=== PATIENT | female | born 1965 | race Native Hawaiian/Other Pacific Islander ===

== ENCOUNTER 2017-05-17 13:06 | Emergency (ER) | payer SELFPAY ==
[~2017-05-17] VITALS: Ht 152.4 cm; Wt 68.0 kg
[2017-05-17 13:13] VITALS: BP_SYST 161
--- NOTE | 2017-05-17 13:20 | NUR ---
MSE performed in triage per ESSENCE Robert.
--- NOTE | 2017-05-17 13:23 | NUR ---
Pt placed to ER bed 04, to [facility], report given to Vikas.
--- NOTE | 2017-05-17 13:28 | NUR ---
57year old female presented to ED accompanied by family with complaints of black colored stool and abdominal pain x 1 month; +nausea; awaiting for MD assess/justina
--- NOTE | 2017-05-17 13:35 | NUR ---
Dr. Her at bedside to assess pt.
--- NOTE | 2017-05-17 13:40 | NUR ---
# 22 gauge angiocath placed to LAC. Use of asceptic technique. Opsite placed over site. Blood return noted. Flushed with 10 cc of normal saline. No evidence of infiltration noted. Patient tolerated well.
--- NOTE | 2017-05-17 13:40 | NUR ---
endorsed care to AMELIA Bean; pt provided urine sample and sent to lab; family at bedside
[2017-05-17] MEDS ORDERED: NACL 0.9% 1,000 ML IV ONE (14:00)
[2017-05-17 14:01] LABS: BASOPHILS # (AUTO) 0.1 K/uL (0.0-0.2); BASOPHILS % (AUTO) 0.7 % (0.0-2.0); EOSINOPHILS # (AUTO) 0.1 K/uL (0.0-0.4); EOSINOPHILS % (AUTO) 1.4 % (0.0-4.0); HEMATOCRIT 47.5 % (36-48); HEMOGLOBIN 15.4 g/dL (12.0-16.0); LYMPHOCYTES % (AUTO) 30.8 % (20.5-51.5); MEAN CORPUSCULAR HEMOGLOBIN 26 pg (27-31); MEAN CORPUSCULAR HGB CONC 32 % (32-36); MEAN CORPUSCULAR VOLUME 79 fL (79.0-98.0); MONOCYTES # (AUTO) 0.6 K/uL (0.0-1.0); MONOCYTES % (AUTO) 5.7 % (1.7-9.3); NEUTROPHILS % (AUTO) 61.4 % (40.0-70.0); PLATELET COUNT (AUTO) 312 K/uL (130-430); RED BLOOD CELL COUNT(AUTO) 6.02 MIL/uL (4.2-6.2); RED CELL DISTRIBUTION WIDTH 13.5 % (9.0-15.0); WHITE BLOOD COUNT (AUTO) 9.8 K/uL (4.8-10.8)
[2017-05-17 14:03] LABS: BILIRUBIN,URINE NEGATIVE (NEGATIVE); BLOOD, URINE NEGATIVE (NEGATIVE); CLARITY/URINE CLEAR (CLEAR); COLOR,URINE YELLOW (YELLOW); GLUCOSE,URINE NEGATIVE (NEGATIVE); KETONES,URINE NEGATIVE (NEGATIVE); LEUKOCYTE ESTERASE ,URINE NEGATIVE (NEGATIVE); NITRITE, URINE NEGATIVE (NEGATIVE); PH,URINE 5.5 (5.0-8.0); PROTEIN URINE NEGATIVE (NEGATIVE); UROBILINOGEN,URINE 0.2 (0.2-1.0)
[2017-05-17 14:14] LABS: CALCIUM 10.9 mg/dL (8.4-11.0); CREATININE 0.75 mg/dL (0.55-1.30)
[2017-05-17 14:16] LABS: INR 0.9 (0.8-1.2); PROTHROMBIN TIME 9.6 SECS (9.5-12.5)
[2017-05-17 14:18] LABS: ALBUMIN 4.6 g/dL (3.4-4.8)
[2017-05-17 15:50] VITALS: BP_SYST 145
--- NOTE | 2017-05-17 15:50 | NUR ---
Patient given written and verbal discharge instructions and verbalizes understanding. ER MD discussed with patient the results and treatment provided. Patient in stable condition. ID arm band removed. IV catheter removed intact and dressing applied, no active bleeding. No Rx given. Patient educated on pain management and to follow up with PMD. Pain Scale 2/10. Opportunity for questions provided and answered.
== END 2017-05-17 15:50 | disposition home or self-care (01) ==
LOC: SED 13:06
DX: K92.2 Gastrointestinal hemorrhage, unspecified (principal); E11.9 Type 2 diabetes mellitus without complications
CPT/HCPCS: 36415; 80053; 81003; 81025; 82272; 83690; 85025; 85610; 96360; 99284; J7030